=== PATIENT | female | born 1995 | race Caucasian/White ===

== ENCOUNTER 2016-12-04 15:28 | Emergency (ER) | payer BC ==
[2016-12-04 15:30] VITALS: BP 136/93; PULSE 85; RESP 12; TEMP 98.5; O2SAT 99
--- NOTE | 2016-12-04 16:34 | PD ---
HPI Chief Complaint: Chest Pain Time Seen by Provider: 16:30 Travel History International Travel<30 days: No Contact w/Intl Traveler<30days: No Traveled to known affect area: No History of Present Illness HPI Patient comes in complaining of left sternal chest wall pain that began around 10:00 this morning and has been constant since. Patient describes this as a achy feeling without radiation. Patient has anything making it better or worse. Denies shortness of breath, nausea, vomiting, numbness or tingling, diaphoresis, abdominal pain, , headaches, neck pain, or family history of heart disease or sudden before the age of 30. Patient denies any known trauma. Pain does not change with position. PFSH Past Medical History Medical History: Denies Significant Hx ?: Not LMP: 11/18/16 Social History Alcohol Use: No Tobacco Use: No Substance Use: No Allergies-Medications (Allergen,Severity, Reaction): Coded Allergies: Neosporin (Verified Allergy, Severe, Rash, 12/04/16) Reported Meds & Prescriptions Reported Meds & Active Scripts Active No Active Prescriptions or Reported Medications Review of Systems Except as stated in HPI: all other systems reviewed are Neg Physical Exam Narrative GENERAL: Well-developed, well nourished, in no acute distress, and non-ill appearing. SKIN: Warm and dry. HEAD: Atraumatic. Normocephalic. EYES: Pupils equal and round. EOMI. No scleral icterus. No injection or drainage. ENT: No nasal bleeding or discharge. Mucous membranes pink and moist. NECK: Trachea midline. No JVD. Supple. No nuclear rigidity. CARDIOVASCULAR: Regular rate and rhythm. No murmur appreciated. RESPIRATORY: No accessory muscle use. No respiratory distress. Clear to auscultation. Breath sounds equal bilaterally. Patient has point tenderness over her anterior chest wall just left of the xiphoid process where she states the pain is. GASTROINTESTINAL: Abdomen soft, non-tender, nondistended. Hepatic and splenic margins not palpable. Normal bowel sounds 4. No pulsatile mass. MUSCULOSKELETAL: No obvious deformities. No clubbing. No cyanosis. No edema. Full range of motion. NEUROLOGICAL: Awake and alert. No obvious cranial nerve deficits. Motor grossly within normal limits. Normal speech. PSYCHIATRIC: Appropriate mood and affect; insight and judgment normal. Data Data Last Documented VS Vital Signs Date Time Temp Pulse Resp B/P Pulse Ox O2 Delivery O2 Flow Rate FiO2 12/04/16 15:30 98.5 85 12 136/93 99 Room Air Orders Chest, Single Ap (12/04/16 ) [facility] Medical Decision Making Medical Screen Exam Complete: Yes Emergency Medical Condition: Yes Interpretation(s) EKG reviewed by Dr. Diez, shows sinus rhythm with ventricular rate of 78. No STEMI and no acute changes. Differential Diagnosis Arrhythmia, pneumonia, pneumothorax, tension pneumothorax, musculoskeletal pain , other Narrative Course The patients chest pain by history and evaluation appears noncardiac, nor noncardiopulmonary in etiology. There is no clinical evidence to suggest thoracic aortic aneurysms or pathology, nor evidence to suggest pulmonary embolism, pericarditis, pneumothorax, nor pneumonia at this time. The patient has no significant risk factors for cardiac disease, pulmonary embolism or aortic disease. Clinical suspicion was discussed with patient and the patient was instructed to follow up with their doctor. The patient agreed with plan. Patient in no obvious distress upon re-evaluation. All pertinent Radiology result(s) discussed with patient/family. Any questions/concerns in reference to patient diagnosis/condition discussed and clarified prior to patient's discharge. Reinforced sheer importance of close follow up with patient's primary physician or primary care clinic. Instructed patient to return to ED immediately, if symptoms return/worsen. Pt showed understanding of above instructions. Further instructions and recommendations were detailed in discharge paperwork. Pt ambulated without difficulty out of ED at discharge. Diagnosis Primary Impression: Non-cardiac chest pain Patient Instructions: General Instructions, Noncardiac Chest Pain (ED) Additional Instructions: Follow-up with your primary care physician this week for reevaluation. Use over -the-counter Tylenol and/or ibuprofen as needed for pain. Follow instructions on the packaging. Return to the emergency department if symptoms get worse. Scripts No Active Prescriptions or Reported Meds Disposition: 01 DISCHARGE HOME Condition: Stable Blair Roberts Dec 04, 2016 16:34
--- NOTE | 2016-12-04 16:53 | RADRPT ---
EXAM DATE/TIME: 12/04/2016 16:48 [facility] COMPARISON: No previous studies available for comparison. INDICATIONS : Chest pain. MEDICAL HISTORY : None. SURGICAL HISTORY : None. ENCOUNTER: Initial ACUITY: 1 day PAIN SCORE: 7/10 LOCATION: chest midline. FINDINGS: Portable AP view of the chest demonstrates a normal-sized cardiac silhouette. No effusion, consolidat ion, or pneumothorax is visualized. The bones and soft tissues demonstrate no acute abnormality. CONCLUSION: No acute cardiopulmonary abnormality is identified. Srikanth Villafana MD on December 04, 2016 at 16:51 Board Certified Radiologist. This report was verified electronically.
--- NOTE | 2016-12-05 22:41 | EKG ---
Date Performed: 12/04/2016 Time Performed: 16:20:58 PTAGE: 21 years EKG: Sinus rhythm WITH SINUS ARRHYTHMIA NORMAL ECG NO PREVIOUS TRACING DOCTOR: Jani Brar Interpretating Date/Time 12/05/2016 22:38:21
== END 2016-12-04 17:16 | disposition home or self-care (01) ==
LOC: NEPB 15:28
DX: R07.89 Other chest pain (principal)
CPT/HCPCS: 71010; 93005